=== PATIENT | male | born 1960 | race African-American/Black ===

== ENCOUNTER 2022-07-17 17:23 | Emergency (ER) | payer OTHER ==
[2022-07-17 17:47] VITALS: BP 97/53; PULSE 99; RESP 17; TEMP 99; BMI 26.6
[2022-07-17] MEDS ORDERED: IBUPROFEN 600 MG TABLET (FP) PO ONE ×2 (18:13→18:37)
[2022-07-17] MEDS ORDERED: ACETAMINOPHEN 500 MG TABLET (FP) PO ONE (18:13)
[2022-07-17] MEDS ORDERED: ACETAMINOPHEN 325 MG TABLET (FP) ONE (18:37)
== END 2022-07-17 19:00 | disposition home or self-care (01) ==
LOC: JER 17:23
DX: J11.1 Influenza due to unidentified influenza virus with other respiratory manifestations (principal)
CPT/HCPCS: 0241U-QW; 71046-TC-FY; 99284-25

== ENCOUNTER 2023-10-07 20:38 | Emergency (ER) | payer OTHER ==
[2023-10-07 20:47] VITALS: BMI 27.3
[2023-10-07 22:15] VITALS: BP 102/67; PULSE 72; RESP 14
== END 2023-10-07 22:34 | disposition home or self-care (01) ==
LOC: FER 20:38
DX: F12.929 Cannabis use, unspecified with intoxication, unspecified (principal); R55 Syncope and collapse
CPT/HCPCS: 99283-25